=== PATIENT | male | born 1975 | race Caucasian/White ===

== ENCOUNTER 2018-03-28 13:07 | Emergency (ER) | payer SELFPAY ==
[~2018-03-28] VITALS: Ht 177.8 cm; Wt 120.2 kg
[2018-03-28 13:30] VITALS: BP 172/81
[2018-03-28] MEDS ORDERED: HYDROcodone/APAP 10/325 1 TAB TABLET PO ONE (13:45)
[2018-03-28] MEDS ORDERED: CYCLOBENZAPRINE 10 MG TABLET. PO ONE (13:45)
--- NOTE | 2018-03-28 13:54 | PHYS DOC ---
Adult General Chief Complaint Chief Complaint: Neck Pain HPI HPI Patient is a 42 year old male who reports he awoke last week with posterior neck pain and pain into the R shoulder and arm. He denies any known injury. He thinks he slept wrong and "pinched a nerve". Review of Systems Review of Systems Constitutional: Denies fever or chills Respiratory: Denies cough or shortness of breath Cardiovascular: Denies chest pain. GI: Denies abdominal pain, nausea, vomiting, bloody stools or diarrhea : Denies dysuria or hematuria Musculoskeletal: Denies back pain or joint pain. Reports neck pain and R arm. Integument: Denies rash or skin lesions Neurologic: Denies headache, focal weakness or sensory changes All other systems were reviewed and found to be within normal limits, except as documented in this note. Current Medications Current Medications Current Medications Medications (Trade) Dose Ordered Sig/Alex Start Time Stop Time Status Last Admin Dose Admin Acetaminophen/ Hydrocodone Bitart (Lortab 10/325) 1 tab 1X ONCE 03/28/18 13:45 03/28/18 13:56 DC 03/28/18 14:03 1 TAB Cyclobenzaprine HCl (Flexeril) 10 mg 1X ONCE 03/28/18 13:45 03/28/18 13:46 DC 03/28/18 14:03 10 MG Allergies Allergies Allergies Coded Allergies Type Severity Reaction Last Updated Verified Sulfa (Sulfonamide Antibiotics) Allergy Intermediate Rash 03/28/18 Yes codeine Allergy Intermediate Swelling 03/28/18 Yes Physical Exam Physical Exam Constitutional: Well developed, well nourished, no acute distress, non-toxic appearance. HENT: Normocephalic, atraumatic, bilateral external ears normal, oropharynx moist, no oral exudates, nose normal. Neck: Normal range of motion with tenderness when looks to right. Tender to palpation of R trapezius. Cardiovascular:Heart rate regular rhythm, no murmur Lungs & Thorax: Bilateral breath sounds clear to auscultation Abdomen: Bowel sounds normal, soft, no tenderness, no masses, no pulsatile masses. Skin: Warm, dry, no erythema, no rash. Back: No tenderness, no CVA tenderness. Extremities: No tenderness, no cyanosis, no clubbing, ROM intact, no edema. R arm pain down to hand. Neurologic: Alert and oriented X 3, normal motor function, normal sensory function, no focal deficits noted. Normal range of motion and cement paver strength of R arm and hand. Sensory intact. Psychologic: Affect normal, judgement normal, mood normal. Current Patient Data Vital Signs Vital Signs Date Time Temp Pulse Resp B/P (MAP) Pulse Ox O2 Delivery O2 Flow Rate FiO2 03/28/18 13:30 97.5 67 18 172/81 (111) 96 Room Air 97.5 EKG EKG [] Radiology/Procedures Radiology/Procedures C spine stable. Course & Med Decision Making Course & Med Decision Making Pertinent Labs and Imaging studies reviewed. (See chart for details) Ice/Heat therapy and rest. Follow up with PCP for re-evaluation. Dragon Disclaimer Dragon Disclaimer This electronic medical record was generated, in whole or in part, using a voice recognition dictation system. Departure Departure Impression: Primary Impression: Cervical muscle strain Disposition: 01 HOME, SELF-CARE Condition: IMPROVED Referrals: NO PCP (PCP) ESTEE TINOCO MD Patient Instructions: Cervical Strain and Sprain with Rehab[facility] Additional Instructions: Ice/heat therapy to help with symptoms, gentle stretching and rest. Scripts Hydrocodone/Apap 5-325 (NORCO 5-325 TABLET) 1 Each Tablet 1 TAB PO TID, #15 TAB Prov: JESSIE HAYES 03/28/18 Methocarbamol (ROBAXIN) 500 Mg Tablet 1 TAB PO BID, #15 TAB Prov: JESSIE HAYES 03/28/18 JESSIE HAYES Mar 28, 2018 13:54
--- NOTE | 2018-03-28 14:11 | RAD ---
EXAM: AP, lateral and open-mouth odontoid view of the cervical spine DATE: 03/28/2018 1:40 PM INDICATION: woke up with pain radiating to right shoulder 5 days ago COMPARISON: No Prior FINDINGS/ IMPRESSION: The cervical spine is imaged from the skull base to C6 on the lateral view. Vertebral bodies are preserved. Mild C5-6 intervertebral disc height loss. Straightening of the normal cervical lordosis. No spondylolisthesis. Normal predental space. No significant prevertebral soft tissue swelling. There is no offset of the lateral masses of C1 on C2. Electronically signed by: Albino Pavon MD (03/28/2018 2:08 PM) [facility]
[2018-03-28] MEDS ORDERED: METH-37 PO (14:21)
[2018-03-28] MEDS ORDERED: HYDR-971 PO (14:21)
== END 2018-03-28 14:27 | disposition home or self-care (01) ==
LOC: ER 13:07
DX: S16.1XXA Strain of muscle, fascia and tendon at neck level, initial encounter (principal); M25.511 Pain in right shoulder; M79.601 Pain in right arm; Z88.5 Allergy status to narcotic agent; Z88.2 Allergy status to sulfonamides; X58.XXXA Exposure to other specified factors, initial encounter; Y93.89 Activity, other specified; Y92.89 Other specified places as the place of occurrence of the external cause; Y99.8 Other external cause status
CPT/HCPCS: 72040; 99284

== ENCOUNTER 2018-09-29 03:22 | Emergency (ER) | payer OTHER ==
[~2018-09-29] VITALS: Ht 177.8 cm; Wt 136.1 kg
[~2018-09-29 03:22] MED LIST: HYDR-3164 PO; METH-37 PO
[2018-09-29 03:30] VITALS: BP 130/64
--- NOTE | 2018-09-29 03:39 | PHYS DOC ---
Past Medical History Past Medical History: No Pertinent History Past Surgical History: Other Additional Past Surgical Histo: L ARM FX REPAIR Smoking: Cigarettes, Less than 1pk/day Alcohol Use: None Drug Use: None Adult General Chief Complaint Chief Complaint: Congestion HPI HPI Patient is a 43 year old male who presents with cough, fever, body aches. This is been going on for the past 5 days. No relief with [id number] Mucinex. Patient does smoke less than a pack a day. No leg swelling, no dyspnea on exertion. No orthopnea.[] Review of Systems Review of Systems Constitutional: Denies shaking chills [] Eyes: Denies change in visual acuity, redness, or eye pain [] HENT: Denies nasal congestion or sore throat [] Respiratory: See history of present illness[] Cardiovascular: No chest pain or palpitations[] GI: Denies abdominal pain, nausea, vomiting, bloody stools or diarrhea [] : Denies dysuria or hematuria [] Musculoskeletal: Denies back pain or joint pain [] Integument: Denies rash or skin lesions [] Neurologic: Denies headache, focal weakness or sensory changes [] Endocrine: Denies polyuria or polydipsia [] All other systems were reviewed and found to be within normal limits, except as documented in this note. Current Medications Current Medications Current Medications Medications (Trade) Dose Ordered Sig/Alex Start Time Stop Time Status Last Admin Dose Admin Albuterol/ Ipratropium (Duoneb) 3 ml 1X ONCE 09/29/18 03:45 09/29/18 03:46 DC 09/29/18 03:50 3 ML Allergies Allergies Allergies Coded Allergies Type Severity Reaction Last Updated Verified Sulfa (Sulfonamide Antibiotics) Allergy Intermediate Rash 03/28/18 Yes codeine Allergy Intermediate Swelling 03/28/18 Yes Physical Exam Physical Exam Constitutional: Well developed, well nourished, no acute distress, non-toxic appearance. [] HENT: Normocephalic, atraumatic, bilateral external ears normal, oropharynx moist, no oral exudates, nose normal. [] Eyes: PERRLA, EOMI, conjunctiva normal, no discharge. [] Neck: Normal range of motion, no tenderness, supple, no stridor. [] Cardiovascular:Heart rate regular rhythm, no murmur [] Lungs & Thorax: Expiratory wheezes diffusely[] Abdomen: Bowel sounds normal, soft, no tenderness, no masses, no pulsatile masses. [] Skin: Warm, dry, no erythema, no rash. [] Back: No tenderness, no CVA tenderness. [] Extremities: No tenderness, no cyanosis, no clubbing, ROM intact, no edema. [] Neurologic: Alert and oriented X 3, normal motor function, normal sensory function, no focal deficits noted. [] Psychologic: Affect normal, judgement normal, mood normal. [] Current Patient Data Vital Signs Vital Signs Date Time Temp Pulse Resp B/P (MAP) Pulse Ox O2 Delivery O2 Flow Rate FiO2 09/29/18 03:53 98 Room Air 09/29/18 03:30 98.2 101 17 130/64 (86) 98.2 Lab Values Laboratory Tests Test 09/29/18 03:40 Influenza Type A Antigen Negative (NEGATIVE) Influenza Type B Antigen Negative (NEGATIVE) EKG EKG [] Radiology/Procedures Radiology/Procedures Chest x-ray shows no infiltrate, no effusion, no pneumothorax. No acute changes when compared with 07/10/2010[] Course & Med Decision Making Course & Med Decision Making Pertinent Labs and Imaging studies reviewed. (See chart for details) ED course: Patient arrived, was placed in bed, and tolerated exam well. Patient received a breathing treatment which significantly improved his breath sounds. He was transported to and from x-ray with any complications. After the return of the imaging and lab findings, these were discussed with the patient voiced understanding. All questions were answered. Patient was discharged in improved condition Medical decision making: There is no evidence of pneumonia, pneumothorax, hypoxia, nor CHF. Influenza test is also negative[] Dragon Disclaimer Dragon Disclaimer This electronic medical record was generated, in whole or in part, using a voice recognition dictation system. Departure Departure Impression: Primary Impression: Acute bronchitis Disposition: 01 HOME, SELF-CARE Condition: IMPROVED Referrals: IRMA SAMUELS MD (PCP) Follow-up in 2 days Patient Instructions: Acute Bronchitis, Smoking Cessation, Tips For Success Additional Instructions: Follow-up with your regular doctor in 2 days. Take medication as prescribed. Stop smoking. Return to the ER if worsening difficulty breathing or any other concerns. Scripts D-Methorphan Hb/Prometh Hcl (PROMETHAZINE-DM SYRUP) 118 Ml Syrup 5 ML PO PRN Q4HRS, #120 ML Prov: KRIS LAW DO 09/29/18 Albuterol Sulfate (VENTOLIN HFA INHALER) 18 Gm Hfa.aer.ad 2 PUFF INH Q4HRS for FOR ASTHMA, #1 INHALER 0 Refills Prov: KRIS LAW DO 09/29/18 Problem Qualifiers Primary Impression: Acute bronchitis Bronchitis organism: unspecified organism Qualified Codes: J20.9 - Acute bronchitis, unspecified KRIS LAW DO Sep 29, 2018 03:39
[2018-09-29] MEDS ORDERED: IPRATRPIUM/ALBUTEROL 0.5/2.5MG 3 ML NEBU. NEB ONE (03:45)
[2018-09-29 04:02] LABS: INFLUENZA A PATIENT NEGATIVE (NEGATIVE); INFLUENZA B PATIENT NEGATIVE (NEGATIVE)
[2018-09-29] MEDS ORDERED: D-ME118S2 PO (04:12)
[2018-09-29] MEDS ORDERED: VENTOLIN HFA18 GM INH (04:12)
--- NOTE | 2018-09-29 04:33 | RAD ---
PA and lateral chest radiographs 09/29/2018 CLINICAL HISTORY: Cough and fever. PA and lateral digital radiographs of the chest were obtained. No previous studies are available for comparison. The cardiac silhouette is normal in size. The thoracic aorta is mildly tortuous. No acute pulmonary infiltrate is seen. No pleural effusion or pneumothorax is noted. Degenerative changes are seen involving the thoracic spine. IMPRESSION: No acute abnormality is seen. Electronically signed by: Gordy Fox MD (09/29/2018 4:30 AM) [facility]
== END 2018-09-29 04:30 | disposition home or self-care (01) ==
LOC: ER 03:22
DX: J20.9 Acute bronchitis, unspecified (principal); R50.9 Fever, unspecified; M79.18 Myalgia, other site; F17.210 Nicotine dependence, cigarettes, uncomplicated; Z88.2 Allergy status to sulfonamides; Z88.5 Allergy status to narcotic agent
CPT/HCPCS: 71046; 87804; 94640; 99284; J7620

== ENCOUNTER 2018-12-08 03:23 | Emergency (ER) | payer OTHER ==
[~2018-12-08] VITALS: Ht 177.8 cm; Wt 129.3 kg
[~2018-12-08 03:23] MED LIST changes: +D-ME118S2 PO; +VENTOLIN HFA18 GM INH
[2018-12-08 03:56] LABS: BASO % 0 % (0-3); EOS # 0.2 x10^3/uL (0.0-0.7); EOS % 2 % (0-3); HEMATOCRIT 41.4 % (39.0-53.0); HEMOGLOBIN 13.8 g/dL (13.0-17.5); LYMPH # 1.7 x10^3/uL (1.0-4.8); LYMPH % 14 % (24-48); MEAN CORPUSCULAR HEMOGLOBIN 29 pg (25-35); MEAN CORPUSCULAR HGB CONC 33 g/dL (31-37); MEAN CORPUSCULAR VOLUME 87 fL (79-100); MONO # 0.9 x10^3/uL (0.0-1.1); MONO % 8 % (0-9); NEUT # 9.3 x10^3uL (1.8-7.7); NEUT % 76 % (31-73); PLATELET COUNT 281 x10^3/uL (140-400); RED BLOOD COUNT 4.77 x10^6/uL (4.30-5.70); RED CELL DISTRIBUTION WIDTH 14.7 % (11.5-14.5); WHITE BLOOD COUNT 12.2 x10^3/uL (4.0-11.0)
[2018-12-08 04:00] VITALS: BP 157/92
[2018-12-08] MEDS ORDERED: MORPHINE SULFATE 4 MG/ML VIAL. IV ONE (04:00)
[2018-12-08] MEDS ORDERED: LIDOCAINE 1%/EPI 1:100,000 20 ML VIAL. INJ ONE (04:00)
[2018-12-08] MEDS ORDERED: CLINDAMYCIN 600MG PREMIX 50 ML IV ONE (04:00)
[2018-12-08 04:04] LABS: CREATININE 1.3 mg/dL (0.7-1.3); GFR 60.5; POTASSIUM 3.5 mmol/L (3.5-5.1)
[2018-12-08 04:10] LABS: ALBUMIN 3.3 g/dL (3.4-5.0); ALBUMIN/GLOBULIN RATIO 0.8 (1.0-1.7); TOTAL BILIRUBIN 0.6 mg/dL (0.2-1.0); TOTAL PROTEIN 7.3 g/dL (6.4-8.2)
[2018-12-08] MEDS ORDERED: ONDANSETRON PF 4 MG/2 ML VIAL. ONE (04:10)
[2018-12-08] MEDS ORDERED: ONDANSETRON PF 4 MG/2 ML VIAL. IV ONE (04:30)
[2018-12-08] MEDS ORDERED: HYDR-3164 PO (04:31)
[2018-12-08] MEDS ORDERED: CLIN300C8 PO (04:31)
--- NOTE | 2018-12-08 04:44 | PHYS DOC ---
Past Medical History Past Medical History: Anxiety, Bipolar, Depression, Other Additional Past Medical Histor: PTSD Past Surgical History: Other Additional Past Surgical Histo: L ARM FX REPAIR, bilateral ear tubes Alcohol Use: Occasionally Drug Use: Methamphetamine Adult General Chief Complaint Chief Complaint: INSECT BITE HPI HPI Patient is a 43 year old male who presents with skin infection right calf he said he saw a spider bit him 5-6 days ago he knocked it off his catheter and killed that he thinks it was a brown recluse but he is not sure. He feels warm no objective fever that was noted he has not taken his temperature pain is sharp moderate to severe nonradiating localized to the right calf area is noticed some drainage coming from the area as well. Patient does use drugs but denies any IV drug use Review of Systems Review of Systems Constitutional Eyes: Denies change in visual acuity, redness, or eye pain [] HENT: Denies nasal congestion or sore throat [] Respiratory: Denies cough or shortness of breath [] Cardiovascular: No additional information not addressed in HPI [] GI: Denies abdominal pain, nausea, vomiting, bloody stools or diarrhea [] Integument: Neurologic: Denies headache, focal weakness or sensory changes [] Endocrine: Denies polyuria or polydipsia [] All other systems were reviewed and found to be within normal limits, except as documented in this note. Current Medications Current Medications Current Medications Medications (Trade) Dose Ordered Sig/[facility] Start Time Stop Time Status Last Admin Dose Admin Clindamycin Phosphate 50 ml @ 100 mls/hr 1X ONCE 12/08/18 04:00 12/08/18 04:29 DC 12/08/18 03:59 100 MLS/HR Lidocaine/ Epinephrine (LIDOCAINE 1%-EPI 1:100,000 Multi-Dose) 20 ml 1X ONCE 12/08/18 04:00 12/08/18 04:01 DC 12/08/18 04:00 20 ML Morphine Sulfate (Morphine Sulfate) 4 mg 1X ONCE 12/08/18 04:00 12/08/18 04:01 DC 12/08/18 04:00 4 MG Ondansetron HCl (Zofran) 4 mg 1X ONCE 12/08/18 04:30 12/08/18 04:32 DC 12/08/18 04:30 4 MG Allergies Allergies Allergies Coded Allergies Type Severity Reaction Last Updated Verified Sulfa (Sulfonamide Antibiotics) Allergy Intermediate Rash 03/28/18 Yes codeine Allergy Intermediate Swelling 03/28/18 Yes Physical Exam Physical Exam Constitutional: Well developed, well nourished, no acute distress, non-toxic appearance. [] HENT: Normocephalic, atraumatic, bilateral external ears normal, oropharynx moist, no oral exudates, nose normal. [] Eyes: PERRLA, EOMI, conjunctiva normal, no discharge. [] Neck: Normal range of motion, no tenderness, supple, no stridor. [] Cardiovascular:Heart rate regular rhythm, no murmur [] Lungs & Thorax: Bilateral breath sounds clear to auscultation [] Abdomen: Bowel sounds normal, soft, no tenderness, no masses, no pulsatile masses. [] Skin: There is a large area of erythema approximately 8 x 8 cm in the medial aspect of the right calf there is a central area 1-2 cm of some necrotic skin. Distal pulses and sensation were intact. There is also another small approximately 1.5 cm area of erythema as well. Back: No tenderness, no CVA tenderness. [] Extremities: no cyanosis, no clubbing, ROM intact,. [] See above Neurologic: Alert and oriented X 3, normal motor function, normal sensory function, no focal deficits noted. [] Psychologic: Affect normal, judgement normal, mood anxious Current Patient Data Vital Signs Vital Signs Date Time Temp Pulse Resp B/P (MAP) Pulse Ox O2 Delivery O2 Flow Rate FiO2 12/08/18 04:00 98 20 157/92 (113) 97 Room Air 12/08/18 03:25 98.5 98.5 Lab Values Laboratory Tests Test 12/08/18 03:35 White Blood Count 12.2 x10^3/uL (4.0-11.0) H Red Blood Count 4.77 x10^6/uL (4.30-5.70) Hemoglobin 13.8 g/dL (13.0-17.5) Hematocrit 41.4 % (39.0-53.0) Mean Corpuscular Volume 87 fL (79-100) Mean Corpuscular Hemoglobin 29 pg (25-35) Mean Corpuscular Hemoglobin Concent 33 g/dL (31-37) Red Cell Distribution Width 14.7 % (11.5-14.5) H Platelet Count 281 x10^3/uL (140-400) Neutrophils (%) (Auto) 76 % (31-73) H Lymphocytes (%) (Auto) 14 % (24-48) L Monocytes (%) (Auto) 8 % (0-9) Eosinophils (%) (Auto) 2 % (0-3) Basophils (%) (Auto) 0 % (0-3) Neutrophils # (Auto) 9.3 x10^3uL (1.8-7.7) H Lymphocytes # (Auto) 1.7 x10^3/uL (1.0-4.8) Monocytes # (Auto) 0.9 x10^3/uL (0.0-1.1) Eosinophils # (Auto) 0.2 x10^3/uL (0.0-0.7) Basophils # (Auto) 0.0 x10^3/uL (0.0-0.2) Sodium Level 142 mmol/L (136-145) Potassium Level 3.5 mmol/L (3.5-5.1) Chloride Level 105 mmol/L (98-107) Carbon Dioxide Level 27 mmol/L (21-32) Anion Gap 10 (6-14) Blood Urea Nitrogen 10 mg/dL (8-26) Creatinine 1.3 mg/dL (0.7-1.3) Estimated GFR (Cockcroft-Gault) 60.5 BUN/Creatinine Ratio 8 (6-20) Glucose Level 126 mg/dL (70-99) H Lactic Acid Level 1.3 mmol/L (0.4-2.0) Calcium Level 9.0 mg/dL (8.5-10.1) Total Bilirubin 0.6 mg/dL (0.2-1.0) Aspartate Amino Transferase (AST) 23 U/L (15-37) Alanine Aminotransferase (ALT) 41 U/L (16-63) Alkaline Phosphatase 82 U/L (46-116) Total Protein 7.3 g/dL (6.4-8.2) Albumin 3.3 g/dL (3.4-5.0) L Albumin/Globulin Ratio 0.8 (1.0-1.7) L Laboratory Tests 12/08/18 03:35 Laboratory Tests 12/08/18 03:35 EKG EKG [] Radiology/Procedures Radiology/Procedures [] Course & Med Decision Making Course & Med Decision Making Pertinent Labs and Imaging studies reviewed. (See chart for details) []Patient has a cellulitis with abscess of the right calf mild leukocytosis lactic normal vitals are reassuring procedure note: Verbal consent obtained lidocaine with epi for anesthesia IV morphine was given as well large incision a pproximately 1.5 cm was made in the center area of fluctuance necrotic tissue was debrided and a moderate amount of pus approximately 5-7 mL was removed and loculations were explored the wound was packed patient tolerated overall with some slight difficulty. Antibiotics were given and patient was given good return precautions and wound care instructions. I asked him to come back in 2 days for recheck. This could be a brown recluse intentionally but I think that clinically looks more like a MRSA we can look at him again in 2 days and see how is going Dragon Disclaimer Dragon Disclaimer This electronic medical record was generated, in whole or in part, using a voice recognition dictation system. Departure Departure Impression: Primary Impression: Abscess Disposition: 01 HOME, SELF-CARE Condition: STABLE Patient Instructions: Abscess, Care After Scripts Hydrocodone/Apap 5-325 (NORCO 5-325 TABLET) 1 Each Tablet 1-2 EACH PO PRN Q6HRS PRN for PAIN, #15 as needed for pain Prov: WARD GILBERT MD 12/08/18 Clindamycin Hcl (CLINDAMYCIN HCL) 300 Mg Capsule 1 CAP PO TID, #21 CAP Prov: WARD GILBERT MD 12/08/18 WARD GILBERT MD Dec 08, 2018 04:44
== END 2018-12-08 04:36 | disposition home or self-care (01) ==
LOC: ER 03:23
DX: L02.415 Cutaneous abscess of right lower limb (principal); F31.9 Bipolar disorder, unspecified; Z88.2 Allergy status to sulfonamides; Z88.5 Allergy status to narcotic agent
CPT/HCPCS: 10061; 36415; 80053; 83605; 85025; 87040; 96365; 96375; 99284; J2270; J2405; J3490; 10060

== ENCOUNTER 2019-02-19 00:50 | Emergency (ER) | payer OTHER ==
[~2019-02-19] VITALS: Ht 177.8 cm; Wt 120.2 kg
[~2019-02-19 00:50] MED LIST changes: +CLIN300C8 PO; -D-ME118S2 PO; +PROM118S9 PO
[2019-02-19 01:23] LABS: BASO # 0.1 x10^3/uL (0.0-0.2); BASO % 1 % (0-3); EOS # 0.2 x10^3/uL (0.0-0.7); EOS % 2 % (0-3); HEMATOCRIT 42.7 % (39.0-53.0); HEMOGLOBIN 14.3 g/dL (13.0-17.5); LYMPH # 1.7 x10^3/uL (1.0-4.8); LYMPH % 16 % (24-48); MEAN CORPUSCULAR HEMOGLOBIN 29 pg (25-35); MEAN CORPUSCULAR HGB CONC 34 g/dL (31-37); MEAN CORPUSCULAR VOLUME 87 fL (79-100); MONO # 0.7 x10^3/uL (0.0-1.1); MONO % 7 % (0-9); NEUT # 7.6 x10^3/uL (1.8-7.7); NEUT % 74 % (31-73); PLATELET COUNT 249 x10^3/uL (140-400); RED BLOOD COUNT 4.91 x10^6/uL (4.30-5.70); RED CELL DISTRIBUTION WIDTH 14.8 % (11.5-14.5); WHITE BLOOD COUNT 10.3 x10^3/uL (4.0-11.0)
[2019-02-19] MEDS ORDERED: IV NORMAL SALINE 1000ML BAG 1,000 ML IV ONE ×2 (01:30→02:00)
[2019-02-19 01:33] LABS: CALCIUM 8.9 mg/dL (8.5-10.1); CREATININE 1.4 mg/dL (0.7-1.3); GFR 55.6; POTASSIUM 3.6 mmol/L (3.5-5.1)
[2019-02-19 01:39] LABS: ALBUMIN 3.5 g/dL (3.4-5.0); ALBUMIN/GLOBULIN RATIO 0.9 (1.0-1.7); MAGNESIUM 2.1 mg/dL (1.8-2.4); TOTAL BILIRUBIN 0.3 mg/dL (0.2-1.0); TOTAL PROTEIN 7.4 g/dL (6.4-8.2)
[2019-02-19 02:17] LABS: BILIRUBIN,URINE NEGATIVE (NEG); CLARITY,URINE CLEAR; COLOR,URINE YELLOW; NITRITE,URINE NEGATIVE (NEG); PROTEIN,URINE NEGATIVE (NEG-TRACE); UROBILINOGEN,URINE 0.2 mg/dL (0.2 mg/dL)
[2019-02-19 02:19] LABS: ACETAMIN < 2 mcg/ml (10-30); SALIC 3.1 mg/dL (2.8-20.0)
[2019-02-19 02:23] LABS: AMORPHOUS SEDIMENT,UR PRESENT /HPF; BACTERIA,URINE 0 /HPF (0-FEW); BARBITURATES NEG (NEG); BENZODIAZEPINES NEG (NEG); CANNABINOIDS POS (NEG); COCAINE NEG (NEG); METHADONE NEG (NEG); OPIATES NEG (NEG); PHENCYCLIDINE NEG (NEG); RBC,URINE 0 /HPF (0-2); SQUAMOUS EPITHELIAL CELL,UR OCC /LPF; WBC,URINE RARE /HPF (0-4)
[2019-02-19 02:24] LABS: AMPHETAMINE/METHAMPHETAMINE POS (NEG)
--- NOTE | 2019-02-19 02:47 | PHYS DOC ---
Past Medical History Past Medical History: Anxiety, Bipolar, Depression, Other Additional Past Medical Histor: PTSD Past Surgical History: Other Additional Past Surgical Histo: L ARM FX REPAIR, bilateral ear tubes Smoking: Cigarettes Alcohol Use: Occasionally Drug Use: Methamphetamine Adult General Chief Complaint Chief Complaint: SUBSTANCE ABUSE HPI HPI 43yo M w/ no significant PMH who presents seeking detox for substance abuse. The patient states they have previously utilized detox services but was unable to recall how long he abstained afterwards. The patient admits to methamphetamine use today with occasion marijuana use. Denies suicidal or homicidal ideation. Denies trauma. Denies fever/chills. Reports he hasn't eaten anything today. Review of Systems Review of Systems Constitutional: Denies fever or chills Eyes: Denies redness or eye pain HENT: Denies nasal congestion or sore throat Respiratory: Denies cough or shortness of breath Cardiovascular: Denies chest pain or palpitations GI: Reports nausea. Denies abdominal pain, vomiting, diarrhea, constipation, or hematochezia : Denies dysuria or hematuria Musculoskeletal: Denies back pain or joint pain Integument: Denies rash or skin lesions Neurologic: Denies headache, focal weakness or sensory changes Complete systems were reviewed and found to be within normal limits, except as documented in this note. Current Medications Current Medications Current Medications Medications (Trade) Dose Ordered Sig/Alex Start Time Stop Time Status Last Admin Dose Admin Potassium Chloride (Klor-Con) 40 meq 1X ONCE 02/19/19 03:30 02/19/19 03:31 Sodium Chloride 1,000 ml @ 1,000 mls/hr 1X ONCE 02/19/19 02:00 02/19/19 02:59 DC 02/19/19 02:10 1,000 MLS/HR Allergies Allergies Allergies Coded Allergies Type Severity Reaction Last Updated Verified Sulfa (Sulfonamide Antibiotics) Allergy Intermediate Rash 03/28/18 Yes codeine Allergy Intermediate Swelling 03/28/18 Yes Physical Exam Physical Exam Constitutional: obese, well developed, well nourished, no acute distress, non- toxic appearance HENT: Normocephalic, atraumatic, oropharynx dry Eyes: PERRL, EOMI, conjunctiva normal, no discharge Neck: Normal range of motion, no tenderness, supple, no cervical or supraclavicular LAD Cardiovascular: Heart rate normal, regular rhythm w/o gallops, rubs, or murmurs Lungs & Thorax: Bilateral breath sounds clear to auscultation, no wheezing Abdomen: Soft, no tenderness Skin: Warm, dry, no erythema, no rash Extremities: No tenderness, ROM intact, no edema Neurologic: Alert and oriented X 3, no focal deficits noted Psychologic: Affect normal, judgement normal Current Patient Data Vital Signs Vital Signs Date Time Temp Pulse Resp B/P (MAP) Pulse Ox O2 Delivery O2 Flow Rate FiO2 02/19/19 02:30 82 156/74 (101) 93 Room Air 02/19/19 01:03 97.0 18 97.0 Lab Values Laboratory Tests Test 02/19/19 01:14 02/19/19 02:10 02/19/19 02:52 White Blood Count 10.3 x10^3/uL (4.0-11.0) Red Blood Count 4.91 x10^6/uL (4.30-5.70) Hemoglobin 14.3 g/dL (13.0-17.5) Hematocrit 42.7 % (39.0-53.0) Mean Corpuscular Volume 87 fL (79-100) Mean Corpuscular Hemoglobin 29 pg (25-35) Mean Corpuscular Hemoglobin Concent 34 g/dL (31-37) Red Cell Distribution Width 14.8 % (11.5-14.5) H Platelet Count 249 x10^3/uL (140-400) Neutrophils (%) (Auto) 74 % (31-73) H Lymphocytes (%) (Auto) 16 % (24-48) L Monocytes (%) (Auto) 7 % (0-9) Eosinophils (%) (Auto) 2 % (0-3) Basophils (%) (Auto) 1 % (0-3) Neutrophils # (Auto) 7.6 x10^3/uL (1.8-7.7) Lymphocytes # (Auto) 1.7 x10^3/uL (1.0-4.8) Monocytes # (Auto) 0.7 x10^3/uL (0.0-1.1) Eosinophils # (Auto) 0.2 x10^3/uL (0.0-0.7) Basophils # (Auto) 0.1 x10^3/uL (0.0-0.2) Sodium Level 143 mmol/L (136-145) 144 mmol/L (136-145) Potassium Level 3.6 mmol/L (3.5-5.1) 3.4 mmol/L (3.5-5.1) L Chloride Level 105 mmol/L (98-107) 108 mmol/L (98-107) H Carbon Dioxide Level 29 mmol/L (21-32) 30 mmol/L (21-32) Anion Gap 9 (6-14) 6 (6-14) Blood Urea Nitrogen 10 mg/dL (8-26) 8 mg/dL (8-26) Creatinine 1.4 mg/dL (0.7-1.3) H 1.2 mg/dL (0.7-1.3) Estimated GFR (Cockcroft-Gault) 55.6 66.4 BUN/Creatinine Ratio 7 (6-20) Glucose Level 104 mg/dL (70-99) H 126 mg/dL (70-99) H Lactic Acid Level 2.2 mmol/L (0.4-2.0) H 1.2 mmol/L (0.4-2.0) Calcium Level 8.9 mg/dL (8.5-10.1) 7.8 mg/dL (8.5-10.1) L Magnesium Level 2.1 mg/dL (1.8-2.4) Total Bilirubin 0.3 mg/dL (0.2-1.0) Aspartate Amino Transferase (AST) 23 U/L (15-37) Alanine Aminotransferase (ALT) 31 U/L (16-63) Alkaline Phosphatase 93 U/L (46-116) Total Protein 7.4 g/dL (6.4-8.2) Albumin 3.5 g/dL (3.4-5.0) Albumin/Globulin Ratio 0.9 (1.0-1.7) L Salicylates Level 3.1 mg/dL (2.8-20.0) Salicylate Last Dose Date Unk Salicylate Last Dose Time Unk Acetaminophen Level < 2 mcg/ml (10-30) L Acetaminophen Last Dose Date Unk Acetaminophen Last Dose Time Unk Ethyl Alcohol Level < 10 mg/dL (0-10) Urine Collection Type Unknown Urine Color Yellow Urine Clarity Clear Urine pH 5.0 Urine Specific [place] >=1.030 Urine Protein Negative mg/dL (NEG-TRACE) Urine Glucose (UA) Negative mg/dL (NEG) Urine Ketones (Stick) Negative mg/dL (NEG) Urine Blood Negative (NEG) Urine Nitrite Negative (NEG) Urine Bilirubin Negative (NEG) Urine Urobilinogen Dipstick 0.2 mg/dL (0.2 mg/dL) Urine Leukocyte Esterase Negative (NEG) Urine RBC 0 /HPF (0-2) Urine WBC Rare /HPF (0-4) Urine Squamous Epithelial Cells Occ /LPF Urine Amorphous Sediment Present /HPF Urine Bacteria 0 /HPF (0-FEW) Urine Mucus Slight /LPF Urine Opiates Screen Neg (NEG) Urine Methadone Screen Neg (NEG) Urine Barbiturates Neg (NEG) Urine Phencyclidine Screen Neg (NEG) Urine Amphetamine/Methamphetamine Pos (NEG) Urine Benzodiazepines Screen Neg (NEG) Urine Cocaine Screen Neg (NEG) Urine Cannabinoids Screen Pos (NEG) Urine Ethyl Alcohol Neg (NEG) Laboratory Tests 02/19/19 01:14 Laboratory Tests 02/19/19 01:14 02/19/19 02:52 EKG EKG EKG obtained @ 0114 and read @ 0115. NSR w/o ST-elevation changes. QRS 80 ms. QT/QTc 352/414 ms. 83 BPM.[] Radiology/Procedures Radiology/Procedures [] Course & Med Decision Making Course & Med Decision Making Pertinent Lab studies reviewed. (See chart for details) Patient presented seeking rehab for substance abuse. Denies suicidal or homicidal ideation. EKG NSR w/o ST-elevation. Labs obtained and posted to chart. Creat slightly elevated from prior at 1.4. Lactic acid 2.2. Labs consistent for dehydration. IVF hydration of 2L NS provided. Repeat Creat and lactic acid with interval improvement. Potassium dropped from initial. Potassium replacement provided. Patient medically cleared for detox. Discussed case with [facility] psychiatric assessment team, who called [facility] and reports they currently are full, but plan on some discharges in the AM. Patient safe for discharge home with resources to call Detox unit in the AM. Laboratory data provided to patient. Patient provided contact info for [facility] and counseled to contact them at 9 AM regarding. Patient stable for discharge with outpatient follow-up with PCP and/or detox unit. Discussed findings and plan with patient, who acknowledges understanding and agreement. Saniya Disclaimer Dragon Disclaimer This electronic medical record was generated, in whole or in part, using a voice recognition dictation system. Departure Departure Impression: Primary Impression: Substance abuse Additional Impressions: Desire for detoxification Dehydration Hypokalemia Disposition: 01 HOME, SELF-CARE Condition: IMPROVED Referrals: IRMA SAMUELS MD (PCP) Patient Instructions: Alcohol and Drug Addiction, Finding Treatment, Dehydration, Adult, [id number], Hypokalemia, Methamphetamine Abuse, Complications, Potassium Content of Foods Additional Instructions: Please call [facility] at [phone] at 9 AM. Problem Qualifiers MOHAN PENNINGTON DO Feb 19, 2019 02:47
[2019-02-19 03:07] LABS: CALCIUM 7.8 mg/dL (8.5-10.1); CREATININE 1.2 mg/dL (0.7-1.3); GFR 66.4; POTASSIUM 3.4 mmol/L (3.5-5.1)
[2019-02-19 03:30] VITALS: BP 134/65
[2019-02-19] MEDS ORDERED: POTASSIUM CHLORIDE 20 MEQ TABLET.ER. PO ONE (03:30)
--- NOTE | 2019-02-19 07:24 | EKG ---
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
== END 2019-02-19 03:34 | disposition home or self-care (01) ==
LOC: ER 00:50
DX: F15.20 Other stimulant dependence, uncomplicated (principal); E86.0 Dehydration; E87.6 Hypokalemia; F41.9 Anxiety disorder, unspecified; F31.9 Bipolar disorder, unspecified; F17.210 Nicotine dependence, cigarettes, uncomplicated; Z88.2 Allergy status to sulfonamides; Z88.5 Allergy status to narcotic agent
CPT/HCPCS: 36415; 80048; 80053; 80307; 80329; 81001; 83605; 83735; 85025; 93005; 96360; 96361; 99285; G0480; J7030